=== PATIENT | male | born 1955 | race Caucasian/White ===

== ENCOUNTER → 2019-06-12 | Outpatient (CLI) | payer MEDICAID ==
[~2019-06-12] MED LIST: CEPH500C PO; HYDR-2890 PO; NAPR220C PO; SULF1TAB38 PO
--- NOTE | 2019-06-12 10:47 | Diagnostic Imaging Report ---
CLINICAL INDICATION: Patient with chronic low back pain with history of heavy lifting injury in the past. EXAM: MRI of the lumbar spine performed without IV contrast. Sagittal T2, sagittal T1, sagittal T2 fat-sat, and axial T2. COMPARISON: None. FINDINGS: There is straightening of the lumbar spine posture. There is no acute lumbar spine fracture. There are Modic type I degenerative signal changes involving the L1 through L4 level. There is no significant paraspinal soft tissue abnormality. There are hypertrophic spurs seen throughout the lumbar spine and facet arthropathy. There is tortuosity of the cauda equina nerve roots seen at the L1-L2 level due to severe central canal stenosis at the L2-L3 level. Otherwise, the visualized portions of the distal thoracic spinal cord, conus medullaris, and cauda equina nerve roots show no other significant abnormality. Conus medullaris tip is seen at the L1-L2 intervertebral level. T10-T11: There is a small posterior disc bulge at the T10-T11 level. There is facet arthropathy at the T10-T11 level with moderate right neural foramen narrowing and mild left neural foramen narrowing. There is mild central canal narrowing. T11-T12: There is a small posterior disc bulge and mild facet arthropathy. There is no significant central spinal canal or neural foramen narrowing. T12-L1: There is no significant central spinal canal or neural foramen narrowing. L1-L2: There is diffuse disc bulge with moderate loss of intervertebral disc height. There is a moderate-sized anterior disc extrusion/herniation. There is [id number] bilateral facet arthropathy and ligamentum flavum buckling. There is moderate central canal stenosis. There is severe bilateral neural foramen narrowing. L2-L3: There is a diffuse disc bulge with severe loss of intervertebral disc height. There are disc spurs extending posteriorly and into the foraminal regions bilaterally. There is moderate bilateral facet arthropathy/hypertrophy and ligamentum flavum buckling. There is severe central canal narrowing and severe neural foramen narrowing. There are hypertrophic anterior disc spurs. L3-L4: There is diffuse disc bulge and moderate loss of intervertebral disc height and Schmorl's nodes. There is moderate bilateral facet arthropathy. There is mild central canal narrowing and severe bilateral neural foramen narrowing. L4-L5: There is diffuse disc bulge with severe loss of intervertebral disc height with endplate irregularity. There are hypertrophic disc spurs seen posteriorly and into the foraminal regions bilaterally. There is severe bilateral facet arthropathy and ligamentum flavum buckling. There is [id number]-[id number]-irxtbl central canal stenosis and moderate bilateral neural foramen narrowing. L5-S1: There is a diffuse disc bulge with severe loss of intervertebral disc height and moderate bilateral facet arthropathy. There is no significant central canal narrowing. There is severe bilateral neural foramen narrowing. IMPRESSION: 1: There is severe multilevel lumbar spine degenerative disease with multilevel diffuse disc bulges, disc spurs, and facet arthropathy. This is described in detail above. 2: There is severe central canal stenosis at the L2-L3 level. 3: There is multilevel severe bilateral neural foramen narrowing seen from the L1 through S1 levels. Dictated by: Dictated on workstation # [id number]
== END ==
LOC: RAD 09:31
PROVIDERS: ATTEND Family Medicine
DX: M51.37 Other intervertebral disc degeneration, lumbosacral region (principal); M51.27 Other intervertebral disc displacement, lumbosacral region; M47.816 Spondylosis without myelopathy or radiculopathy, lumbar region; M48.07 Spinal stenosis, lumbosacral region; M46.97 Unspecified inflammatory spondylopathy, lumbosacral region; M46.94 Unspecified inflammatory spondylopathy, thoracic region; M51.24 Other intervertebral disc displacement, thoracic region; M48.04 Spinal stenosis, thoracic region
CPT/HCPCS: 72148

== ENCOUNTER → 2021-06-13 | Outpatient (CLI) | payer MEDICAID ==
--- NOTE | 2021-06-13 17:48 | Diagnostic Imaging Report ---
CT Lung Screening INDICATION:Current smoker with [id number] smoking history for baseline low-dose CT screening. TECHNIQUE: Noncontrast, low-dose CT imaging performed according to the lung cancer screening protocol. Auto Exposure Controls were utilize during the CT exam to meet ALARA standards for radiation dose reduction. FINDINGS: Baseline. Some mild linear zones of subpleural scarring or partial atelectasis greatest in the right lung base. No suspicious lung mass or worrisome pulmonary nodule. There are few densely calcified benign pulmonary granulomata. No spiculated lesion. No findings of pneumonia. There is some benign calcified granulomatous disease in the lymph nodes. There is no pleural or pericardial effusion. No acute chest wall pathology. Upper abdomen showing a fatty liver. IMPRESSION: Lung RADS category 2 benign findings as described. No evidence for lung cancer. Continued annual low-dose CT screening follow-up recommended. LUNG-RADS CATEGORY: Category 2 MODIFIER: None OTHER SIGNIFICANT FINDINGS: Some chronic areas of subpleural scarring and partial atelectasis with benign granulomatous disease Dictated by: Dictated on workstation # [id number]
== END ==
LOC: RAD 14:45
PROVIDERS: ATTEND Family Medicine
DX: Z12.2 Encounter for screening for malignant neoplasm of respiratory organs (principal); J43.1 Panlobular emphysema; F17.210 Nicotine dependence, cigarettes, uncomplicated
CPT/HCPCS: 71271

== ENCOUNTER 2023-05-31 13:51 | Inpatient (IN) | payer MEDICARE, MEDICAID ==
[2023-05-31] VITALS (7 sets, daily range): BP systolic 97–142; BP diastolic 51–75
[~2023-05-31] VITALS: Ht 175 cm; Wt 49.9 kg
--- NOTE | 2023-05-31 14:07 | ED General ---
General Chief Complaint: General Problems/Pain Stated Complaint: GEN WEAKNESS Source of Information: Patient Exam Limitations: No Limitations History of Present Illness Date Seen by Provider: May 31, 2023 Time Seen by Provider: 13:55 Initial Comments This 67-year-old man is brought to the emergency room by [facility] with primary complaint of generalized weakness and urinary incontinence. He lives alone and has been unable to walk due to generalized weakness for several days. A friend checked on him and noted him to be incontinent and weak prompting the ambulance call. EMS noted that he was near hypotensive with systolic blood pressures of 99 and 106. IV fluids were initiated by EMS. He is afebrile. He is alert and conversational but does appear weak. He reports frequent falls over the last few months but does not describe any specific injury. He has generalized pain. He is quite thin and has numerous bedbugs. His clothing is soiled. His weakness appears to be global on exam. He reports drinking about 2 beers a daily. He has had chronic back pain and progressive weakness for many months but has not wanted to go to a doctor. Allergies and Home Medications Allergies Coded Allergies: No Known Drug Allergies (Unverified , 09/24/12) Patient Home Medication List Home Medication List Reviewed: Yes Hydrocodone Bit/Acetaminophen (Hydrocodon-Acetaminophn 10-325) 1 Each Tablet, 1 EACH PO Q6H Prescribed by: GM DELCID on 11/03/12 1129 Review of Systems Review of Systems Constitutional: see HPI EENTM: no symptoms reported Respiratory: no symptoms reported Cardiovascular: no symptoms reported Gastrointestinal: no symptoms reported Genitourinary: no symptoms reported Musculoskeletal: see HPI Skin: no symptoms reported Psychiatric/Neurological: See HPI Hematologic/Lymphatic: No Symptoms Reported Immunological/Allergic: no symptoms reported Past Keogrnv-Kcnmbt-Vhmrug Hx Patient Social History Tobacco Use?: Yes Tobacco type used: Cigarettes Use of E-Cig and/or Vaping dev: No Substance use?: Yes Substance type: Marijuana Substance frequency: Once in a while Alcohol Use?: Yes Alcohol Frequency: Daily Immunizations Up To Date Tetanus Booster (TDap): Less than 5yrs Past Medical History Surgeries: No Respiratory: No Cardiac: Yes Hypertension Neurological: No Reproductive Disorders: No Sexually Transmitted Disease: No HIV/AIDS: No Genitourinary: No Gastrointestinal: No Musculoskeletal: Yes Arthritis, Chronic Back Pain, Fractures HEENT: No Cancer: No Psychosocial: Yes (Daily alcohol use) Adverse Reaction/Blood Tranf: No Physical Exam Vital Signs Vital Signs - First Documented 05/31/23 05/31/23 14:35 15:49 Pulse 74 Resp 16 B/P (MAP) 96/66 (76) Pulse Ox 100 O2 Delivery Room Air Capillary Refill : Height, Weight, BMI Height: '" Weight: lbs. oz. kg; BMI Method:Stated General Appearance: No Apparent Distress, WD/WN, Thin, Other (Weak, soiled, disheveled, bedbug infestation) HEENT: PERRL/EOMI, Normal ENT Inspection, Other (Oropharynx somewhat dry) Neck: Normal Inspection; No JVD Respiratory: Lungs Clear, Normal Breath Sounds, No Accessory Muscle Use Cardiovascular: Regular Rate, Rhythm, No Edema, No Murmur Gastrointestinal: Non Tender, Soft Extremity: Normal Inspection, No Pedal Edema Neurologic/Psychiatric: Alert, Oriented x3, Normal Mood/Affect, Other (Generalized weakness, moves all 4 extremities equally) Skin: Normal Color, Warm/Dry Progress/Results/Core Measures Suspected Sepsis SIRS Temperature: Pulse: Respiratory Rate: Laboratory Tests 05/31/23 14:27: White Blood Count 5.1 Blood Pressure / Mean: Laboratory Tests 05/31/23 14:05: Creatinine 0.55L, INR Comment 1.2, Total Bilirubin 0.2 05/31/23 14:27: Platelet Count 402H Results/Orders Lab Results Laboratory Tests Test 05/31/23 14:05 05/31/23 14:27 05/31/23 15:15 Range/Units Prothrombin Time 15.3 H 12.2-14.7 SEC INR Comment 1.2 0.8-1.4 Activated Partial Thromboplast Time 22 L 24-35 SEC Sodium Level 131 L 135-145 MMOL/L Potassium Level 4.0 3.6-5.0 MMOL/L Chloride Level 99 98-107 MMOL/L Carbon Dioxide Level 18 L 21-32 MMOL/L Anion Gap 14 5-14 MMOL/L Blood Urea Nitrogen 8 7-18 MG/DL Creatinine 0.55 L 0.60-1.30 MG/DL Estimat Glomerular Filtration Rate 110 BUN/Creatinine Ratio 15 Glucose Level 99 70-105 MG/DL Calcium Level 8.0 L 8.5-10.1 MG/DL Corrected Calcium 8.7 8.5-10.1 MG/DL Magnesium Level 2.2 1.6-2.4 MG/DL Total Bilirubin 0.2 0.1-1.0 MG/DL Aspartate Amino Transf (AST/SGOT) 17 5-34 U/L Alanine Aminotransferase (ALT/SGPT) 9 0-55 U/L Alkaline Phosphatase 89 40-136 U/L Total Protein 5.9 L 6.4-8.2 GM/DL Albumin 3.1 L 3.2-4.5 GM/DL Serum Alcohol 26 H <10 MG/DL White Blood Count 5.1 4.3-11.0 10^3/uL Red Blood Count 1.51 L 4.30-5.52 10^6/uL Hemoglobin 2.7 *L 3.0 *L 13.3-17.7 g/dL Hematocrit 10 *L 11 *L 40-54 % Mean Corpuscular Volume 66 L 80-99 fL Mean Corpuscular Hemoglobin 18 L 25-34 pg Mean Corpuscular Hemoglobin Concent 27 L 32-36 g/dL Red Cell Distribution Width 17.4 H 10.0-14.5 % Platelet Count 402 H 130-400 10^3/uL Mean Platelet Volume 8.9 L 9.0-12.2 fL Neutrophils (%) (Auto) 48 42-75 % Lymphocytes (%) (Auto) 34 12-44 % Monocytes (%) (Auto) 13 H 0-12 % Eosinophils (%) (Auto) 4 0-10 % Basophils (%) (Auto) 1 0-10 % Neutrophils # (Auto) 2.5 1.8-7.8 X 10^3 Lymphocytes # (Auto) 1.7 1.0-4.0 X 10^3 Monocytes # (Auto) 0.7 0.0-1.0 X 10^3 Eosinophils # (Auto) 0.2 0.0-0.3 10^3/uL Basophils # (Auto) 0.1 0.0-0.1 10^3/uL Neutrophils % (Manual) 48 % Lymphocytes % (Manual) 40 % Monocytes % (Manual) 10 % Eosinophils % (Manual) 2 % Platelet Estimate ADEQUATE Hypochromasia 4 Basophilic Stippling MARKED Anisocytosis MODERATE Microcytosis SLIGHT Macrocytosis SLIGHT Target Cells SLIGHT Schistocytes MODERATE Smear Scan N My Orders Orders - ALDO REYNA MD Alcohol (05/31/23 14:02) Cbc With Automated Diff (05/31/23 14:02) Comprehensive Metabolic Panel (05/31/23 14:02) Drug Screen Stat (Urine) (05/31/23 14:02) Magnesium (05/31/23 14:02) Thyroid Analyzer (05/31/23 14:02) Ua Culture If Indicated (05/31/23 14:02) Ed Iv/Invasive Line Start (05/31/23 14:02) Protime With Inr (05/31/23 15:01) Partial Thromboplastin Time (05/31/23 15:01) Manual Differential (05/31/23 14:27) Hemoglobin And Hematocrit (05/31/23 15:15) Vital Signs/I&O 05/31/23 05/31/23 14:35 15:49 Pulse 74 84 Resp 16 16 B/P (MAP) 96/66 (76) 97/54 Pulse Ox 100 100 O2 Delivery Room Air Capillary Refill : Progress Note : Time: 16:00 Progress Note Patient was interviewed and examined upon arrival. Report was received from EMS. Labs were obtained and reviewed in their entirety. Patient had not yet produced a urine specimen. CBC was markedly abnormal with a hemoglobin of 2.7 and hematocrit of 10. Repeat draw for confirmation reported hemoglobin of 3.0 and hematocrit of 11. WBC count was normal. Platelets were mildly elevated at 402. MCV was low and RDW was high. I inquired of possible blood loss with the patient. He reports no hematemesis, hematochezia or melena. He is not aware of any blood loss. He does not take any blood thinning medications. CMP was relatively unremarkable. There is mild hyponatremia with sodium of 131. CMP was otherwise unremarkable. Thyroid analyzer was pending. Alcohol level was 26. INR was normal at 1.2. Case was reviewed with Dr. Roger, admitting physician for [facility]. She excepted admission to the cardiac stepdown unit. I discussed CODE STATUS with the patient, and he elects full code. He is agreeable to transfer for admission and transfusions. Departure Communication (Admissions) Time/Spoke to Admitting Phy: 15:45 Dr. Roger Impression Primary Impression: Severe anemia Additional Impressions: Generalized weakness Frequent falls Infestation by bed bug Disposition: 30 STILL A PATIENT Condition: Stable Admissions Decision to Admit Reason: Admit from ER (General) Decision to Admit/Date: May 31, 2023 Time/Decision to Admit Time: 15:45 Departure-Patient Inst. Decision time for Depature: 16:15 Referrals: MAHIN TELLEZ MD (PCP/Family) Primary Care Physician Copy Copies To 1: MAHIN TELLEZ MD, JOSHUA T MD May 31, 2023 14:07
[2023-05-31 14:33] LABS: ALBUMIN 3.1 GM/DL (3.2-4.5); BILIRUBIN,TOTAL 0.2 MG/DL (0.1-1.0); CREATININE SERUM 0.55 MG/DL (0.60-1.30); MAGNESIUM 2.2 MG/DL (1.6-2.4); TOTAL PROTEIN 5.9 GM/DL (6.4-8.2)
[2023-05-31 15:05] LABS: WHITE BLOOD COUNT 5.1 10^3/uL (4.3-11.0)
[2023-05-31 15:06] LABS: HEMATOCRIT 10 % (40-54); HEMOGLOBIN 2.7 g/dL (13.3-17.7); MEAN CORPUSCULAR HEMOGLOBIN 18 pg (25-34); MEAN CORPUSCULAR HGB CONC 27 g/dL (32-36); MEAN CORPUSCULAR VOLUME 66 fL (80-99)
[2023-05-31 15:07] LABS: LYMPHOCYTES % (AUTO) 34 % (12-44); MEAN PLATELET VOLUME 8.9 fL (9.0-12.2); NEUTROPHILS % (AUTO) 48 % (42-75); PLATELET COUNT 402 10^3/uL (130-400)
[2023-05-31 15:08] LABS: BASOPHILS # (AUTO) 0.1 10^3/uL (0.0-0.1); BASOPHILS % (AUTO) 1 % (0-10); EOSINOPHILS # (AUTO) 0.2 10^3/uL (0.0-0.3); EOSINOPHILS % (AUTO) 4 % (0-10); LYMPHOCYTES # (AUTO) 1.7 X 10^3 (1.0-4.0); MONOCYTES # (AUTO) 0.7 X 10^3 (0.0-1.0); MONOCYTES % (AUTO) 13 % (0-12); NEUTROPHILS # (AUTO) 2.5 X 10^3 (1.8-7.8)
[2023-05-31 15:09] LABS: EOSINOPHILS % (MANUAL) 2 %; LYMPHOCYTES % (MANUAL) 40 %; MONOCYTES % (MANUAL) 10 %; NEUTROPHILS % (MANUAL) 48 %; SMEAR SCAN COMMENT N
[2023-05-31 15:10] LABS: ANISOCYTOSIS MODERATE; HYPOCHROMASIA 4; MICROCYTOSIS SLIGHT; PLATELET ESTIMATE ADEQUATE; SCHISTOCYTES MODERATE; TARGET CELLS SLIGHT
[2023-05-31 15:21] LABS: INR 1.2 (0.8-1.4); PROTHROMBIN TIME PATIENT 15.3 SEC (12.2-14.7)
[2023-05-31] MEDS ORDERED: NS IV 500 ML 500 ML IV SCH ×2 (17:45)
[2023-05-31] MEDS ORDERED: NS IV 1000 ML 1,000 ML ONE (17:55)
[2023-05-31 18:02] LABS: BILIRUBIN,URINE NEGATIVE (NEGATIVE); CLARITY,URINE CLEAR; COLOR,URINE YELLOW; GLUCOSE, URINE (UA) NEGATIVE (NEGATIVE); KETONES,URINE TRACE (NEGATIVE); NITRITE,URINE POSITIVE (NEGATIVE); PH,URINE 5.5 (5-9); PROTEIN,URINE NEGATIVE (NEGATIVE)
[2023-05-31 18:03] LABS: BACTERIA,URINE LARGE /HPF; HYALINE CASTS, URINE 0-2 /LPF; LEUKOCYTE ESTERASE ,URINE TRACE (NEGATIVE); SQUAMOUS EPITHELIAL CELL,UR 0-2 /HPF
[2023-05-31 18:07] LABS: AMPHETAMINE SCREEN, URINE NEGATIVE (NEGATIVE); BARBITURATE SCREEN URINE NEGATIVE (NEGATIVE); CANNABINOID SCREEN, URINE POSITIVE (NEGATIVE); COCAINE SCREEN URINE NEGATIVE (NEGATIVE); METHADONE STAT NEGATIVE (NEGATIVE); OPIATE SCREEN URINE NEGATIVE (NEGATIVE); OXYCODONE STAT NEGATIVE (NEGATIVE); PROPOXYPHENE STAT NEGATIVE (NEGATIVE); TRICYCLIC ANTIDEPRESSANTS SCRE NEGATIVE (NEGATIVE)
[2023-05-31 18:34] LABS: ABSOLUTE RETIC # 34 10e9/uL (24-90); BASOPHILS % (AUTO) 0 % (0-10); EOSINOPHILS # (AUTO) 0.1 10^3/uL (0.0-0.3); EOSINOPHILS % (AUTO) 1 % (0-10); LYMPHOCYTES # (AUTO) 1.3 10^3/uL (1.0-4.0); LYMPHOCYTES % (AUTO) 17 % (12-44); MEAN CORPUSCULAR HEMOGLOBIN 18 pg (25-34); MEAN CORPUSCULAR HGB CONC 28 g/dL (32-36); MEAN CORPUSCULAR VOLUME 64 fL (80-99); MEAN PLATELET VOLUME 9.2 fL (9.0-12.2); MONOCYTES # (AUTO) 0.8 10^3/uL (0.0-1.0); MONOCYTES % (AUTO) 10 % (0-12); NEUTROPHILS # (AUTO) 5.6 10^3/uL (1.8-7.8); NEUTROPHILS % (AUTO) 71 % (42-75); PLATELET COUNT 500 10^3/uL (130-400); RETICULOCYTE % 1.85 % (0.50-2.40); WHITE BLOOD COUNT 7.9 10^3/uL (4.3-11.0)
[2023-05-31 18:36] LABS: HEMATOCRIT 12 % (40-54); HEMOGLOBIN 3.2 g/dL (13.3-17.7)
[2023-05-31 19:26] LABS: ANISOCYTOSIS SLIGHT; HYPOCHROMASIA MARKED; LYMPHOCYTES % (MANUAL) 20 %; MICROCYTOSIS MARKED; MONOCYTES % (MANUAL) 10 %; NEUTROPHILS % (MANUAL) 70 %
[2023-05-31] MEDS ORDERED: CEFTRIAXONE IV SCH (20:45)
[2023-05-31] MEDS ORDERED: [UNRECOGNIZED DRUG - OTHER] IV SCH (20:45)
[2023-05-31] MEDS ORDERED: cefTRIAXone 1,000 MG VIAL IV/IM IV SCH (21:15)
[2023-05-31 21:49] LABS: TSH (THYROID ANALYZER) 4.04 UIU/ML (0.35-4.94)
[2023-06-01] VITALS (10 sets, daily range): BP systolic 113–137; BP diastolic 70–90
[2023-06-01] MEDS ORDERED: cefTRIAXone 1,000 MG VIAL IV/IM IV SCH (03:15)
[2023-06-01] MEDS: cefTRIAXone 1 GM/NS 50 ML IVPB IV SCH ×2 (04:14)
[2023-06-01 04:47] LABS: MEAN CORPUSCULAR HEMOGLOBIN 23 pg (25-34); MEAN CORPUSCULAR HGB CONC 32 g/dL (32-36); MEAN CORPUSCULAR VOLUME 73 fL (80-99); PLATELET COUNT 337 10^3/uL (130-400); WHITE BLOOD COUNT 16.8 10^3/uL (4.3-11.0)
[2023-06-01 04:51] LABS: HEMATOCRIT 18 % (40-54); HEMOGLOBIN 5.8 g/dL (13.3-17.7)
[2023-06-01 05:20] LABS: ALBUMIN 3.1 GM/DL (3.2-4.5); BILIRUBIN,TOTAL 1.8 MG/DL (0.1-1.0); CALCIUM 7.8 MG/DL (8.5-10.1); CREATININE SERUM 0.6 MG/DL (0.60-1.30); POTASSIUM 3.9 MMOL/L (3.6-5.0); TOTAL PROTEIN 5.4 GM/DL (6.4-8.2)
[2023-06-01 10:52] LABS: HEMOGLOBIN 7.4 g/dL (13.3-17.7)
--- NOTE | 2023-06-01 14:26 | Diagnostic Imaging Report ---
EXAMINATION: CT chest, abdomen and pelvis without intravenous contrast. TECHNIQUE: Multiple contiguous axial images were obtained through the chest, abdomen and pelvis without intravenous contrast. All CT scans use one or more of the following dose optimizing techniques: automated exposure control, MA and/or KvP adjustment based on patient size and exam type or iterative reconstruction. HISTORY: Anemia. COMPARISON: 06/13/2021. FINDINGS: Thyroid: The thyroid is normal. Mediastinum: Heart size is normal without significant pericardial effusion. Calcifications of the aorta and coronary vessels. Thoracic aorta is normal in caliber. There are calcified mediastinal and perihilar lymph nodes present. No suspicious lymphadenopathy. Lungs and airways: There is no focal consolidation, pleural effusion, or pneumothorax. Scattered areas of linear atelectasis or scarring are present. There are mild background emphysematous changes of the lungs. No suspicious pulmonary lesion. The airways are normal. Solid organs: The liver is normal. The gallbladder is normal. There is no biliary ductal dilation. Pancreas is normal. Spleen is normal. Adrenal glands are normal. The kidneys are normal without hydronephrosis. Bowel: The stomach and small bowel are normal without obstruction. The colon is unremarkable. There is decreased evaluation of the bowel secondary to significant bowel gas as well as patient respiratory motion throughout the exam. Peritoneum: There is no intraperitoneal free fluid or free air. No suspicious lymphadenopathy. Vasculature: Calcification of the aorta without aneurysm. Musculoskeletal: Degenerative changes of the spine without suspicious osseous lesion or compression fracture. There are a few chronic healed rib fractures present. Pelvis: The prostate gland is normal. The urinary bladder is decompressed which limits evaluation. IMPRESSION: 1. No acute abnormality in the abdomen or pelvis. 2. No findings suspicious for malignancy. Dictated by: Dictated on workstation # [id number]
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
[2023-06-01 17:57] LABS: HEMATOCRIT 23 % (40-54); HEMOGLOBIN 7.3 g/dL (13.3-17.7); MEAN CORPUSCULAR HEMOGLOBIN 24 pg (25-34); MEAN CORPUSCULAR HGB CONC 32 g/dL (32-36); MEAN CORPUSCULAR VOLUME 75 fL (80-99); MEAN PLATELET VOLUME 8.8 fL (9.0-12.2); PLATELET COUNT 315 10^3/uL (130-400); WHITE BLOOD COUNT 13.7 10^3/uL (4.3-11.0)
[2023-06-02] VITALS (7 sets, daily range): BP systolic 106–151; BP diastolic 63–98
[2023-06-02] MEDS: cefTRIAXone 1 GM/NS 50 ML IVPB IV SCH ×2 (04:14)
[2023-06-02 05:51] LABS: HEMATOCRIT 22 % (40-54); MEAN CORPUSCULAR HEMOGLOBIN 24 pg (25-34); MEAN CORPUSCULAR HGB CONC 32 g/dL (32-36); MEAN CORPUSCULAR VOLUME 74 fL (80-99); PLATELET COUNT 313 10^3/uL (130-400); WHITE BLOOD COUNT 9.2 10^3/uL (4.3-11.0)
[2023-06-02 06:13] LABS: BILIRUBIN,TOTAL 0.6 MG/DL (0.1-1.0); CALCIUM 7.8 MG/DL (8.5-10.1); CREATININE SERUM 0.58 MG/DL (0.60-1.30); POTASSIUM 4.1 MMOL/L (3.6-5.0); TOTAL PROTEIN 5.5 GM/DL (6.4-8.2)
--- NOTE | 2023-06-02 07:46 | Physical Therapy Evaluation ---
PT Evaluation-General Medical Diagnosis Admission Date May 31, 2023 at 17:30 Medical Diagnosis: anemia Onset Date: May 31, 2023 Therapy Diagnosis Therapy Diagnosis: debility Precautions Precautions/Isolations: Standard Precautions Weight Bear Status Right Lower Extremity: Right Full Weight Bearing Left Lower Extremity: Left Full Weight Bearing Referral Physician: Kana Reason for Referral: Evaluation/Treatment Social History Home: Single Level Current Living Status: Alone Prior Prior Level of Function SCALE: Activities may be completed with or without assistive devices. 3-Faoamhiagb-pohttuw completes the activity by him/herself with no assistance from a helper. 5-Set-up or Clean-up Assistance-helper sets up or cleans up; patient completes activity. [place] assists only prior to or following the activity. 4-Supervision or Touching Assistance-helper provides verbal cues and/or touching/steadying and/or contact guard assistance as patient completes activity. Assistance may be provided throughout the activity or intermittently. 3-Partial/Moderate Assistance-helper does LESS THAN HALF the effort. [place] lifts, holds or supports trunk or limbs, but provides less than half the effort. 2-Substantial/Maximal Assistance-helper does MORE THAN HALF the effort. [place] lifts or holds trunk or limbs and provides more than half the effort. 7-Jsjgxarqi-zdtrdi does ALL the effort. Patient does none of the effort to complete the activity. Or, the assistance of 2 or more helpers is required for the patient to complete the activity. If activity was not attempted, code reason: 7-Patient Refused. 9-Not Applicable-not attempted and the patient did not perform the activity before the current illness, exacerbation or injury. 10-Not Attempted due to Environmental Limitations-(lack of equipment, weather restraints, etc.). 88-Not Attempted due to Medical Conditions or Safety Concerns. Bed Mobility: 6 Transfers (B,C,W/C): 6 Gait: 6 Stairs: 6 Indoor Mobility (Ambulation): Independent Stairs: Independent PT Evaluation-Current Subjective The patient states that he has been getting weaker for the past year or so. He reports that recently his legs have stopped working and that he is falling a lot and having difficulty walking. Pain Comment: reports he has pain but would not rate Objective Patient Orientation: Person, Place, Time, Situation Attachments: IV ROM/Strength ROM Lower Extremities WFL Strength Lower Extremities 3+/5 Transfers Roll Left to Right (QC): 5 Sit to Lying (QC): 5 Lying to Sitting/Side of Bed(Q: 5 Sit to Stand (QC): 5 Gait Does the Patient Walk?: Yes Mode of Locomotion: Walk Anticipated Mode of Locomotion: Walk Walk 10 feet (QC): 88 Walk 50 ft with 2 Turns(QC): 88 Walk 150 ft (QC): 88 Walking 10ft/uneven surface-QC: 88 Distance: 5 Gait Assistive Device: FWW Wheelchair Training Does the Pt Use a Wheelchair?: No Balance Sitting Static: Good Sitting Dynamic: Good Standing Static: Fair Standing Dynamic: Poor Assessment/Needs 67 y.o. male with severe weakness and debility. He has functional mobility limitations that justify skilled therapy. Rehab Potential: Good PT Intercell Connector Placer Goals Alf Goals PT Intercell Connector Placer Goals Time Frame: Jun 09, 2023 Roll Left & Right (QC): 6 Sit to Lying (QC): 6 Lying-Sitting on Side/Bed(QC): 6 Sit to Stand (QC): 6 Chair/Nuy-gz-Evxsb Xfer(QC): 6 Toilet Transfer (QC): 6 Car Transfer (QC): 6 Does the Patient Walk: Yes Walk 10 feet (QC): 5 Walk 50ft with 2 Turns (QC): 5 Walk 150 ft (QC): 5 Walking 10ft on Uneven Surface: 5 1 Step (curb) (QC): 5 4 Steps (QC): 5 12 Steps (QC): 5 Picking up an Object (QC): 5 PT Plan Problem List Problem List: Activity Tolerance, Functional Strength, Safety, Balance, Gait, Transfer, Bed Mobility Treatment/Plan Treatment Plan: Continue Plan of Care Treatment Plan: Bed Mobility, Functional Activity Elio, Functional Strength, Gait, Safety, Therapeutic Exercise, Transfers Treatment Duration: Jun 09, 2023 Frequency: 6 times per week Estimated Hrs Per Day: .5 hour per day Patient and/or Family Agrees t: Yes Time Time In: 725 Time Out: 740 DATE: Jun 02, 2023 Total Billed Treatment Time: 15 Total Billed Treatment 1, EV low complexity x 15' MIGUELANGEL HARRISON PT Jun 02, 2023 07:46
--- NOTE | 2023-06-02 07:57 | Progress Note ---
EDITH YIN MD, RESIDENT 06/02/23 0757: Subjective HPI/CC On Admission Date Seen by Provider: Jun 02, 2023 Time Seen by Provider: 10:45 Anemia Subjective/Events-last exam Patient feels well this morning. Has not noted any overt signs of bleeding. Did not sleep well last night as he had difficulty getting comfortable so feels a bit tired today. No other concerns today. Review of Systems General: No Fatigue HEENT: No Head Aches, No Visual Changes Pulmonary: Cough Cardiovascular: No: Chest Pain, Edema Gastrointestinal: No: Nausea, Vomiting, Abdominal Pain, Diarrhea, Constipation Genitourinary: No Dysuria Musculoskeletal: leg pain (bilaterally, chronic) Neurological: Weakness Objective Exam Vital Signs Vital Signs Date Time Temp Pulse Resp B/P (MAP) Pulse Ox O2 Delivery O2 Flow Rate FiO2 06/02/23 08:00 36.1 80 18 149/63 (91) 94 Room Air 06/02/23 06:18 0.00 Capillary Refill : General Appearance: No Apparent Distress HEENT: PERRL/EOMI Neck: Full Range of Motion Respiratory: Chest Non Tender, Lungs Clear, Normal Breath Sounds, No Accessory Muscle Use, No Respiratory Distress Cardiovascular: Regular Rate, Rhythm, No Edema, No Murmur, Normal Peripheral Pulses Gastrointestinal: Normal Bowel Sounds, Non Tender, Soft Extremity: Normal Range of Motion Neurologic/Psychiatric: Alert, Oriented x3 Skin: Warm/Dry Results/Procedures Lab Laboratory Tests 06/01/23 17:52 06/02/23 05:37 Patient resulted labs reviewed. Imaging: Reviewed Imaging Films Assessment/Plan Assessment and Plan Assess & Plan/Chief Complaint Андрей Rock is a 67 yo M presenting with anemia, also found to have a UTI. Diagnosis/Problems Diagnosis/Problems (1) Urinary tract infection Status: Acute Assessment & Plan: Noted to have UTI on UA, patient is otherwise asymptomatic. Leukocytosis has resolved. Urine culture growing E. coli. -Continue ceftriaxone -Will adjust antibiotic regimen pending susceptibilities. Qualifiers: Qualified Codes: N30.00 - Acute cystitis without hematuria (2) Severe anemia Status: Acute Assessment & Plan: No overt signs of hematochezia, melena or hematemesis noted. Thus anemia likely chronic and developing over time. Patient denies any prior EGD or colonoscopy. Anemia is consistent with iron deficiency, normal B12 and folate. Stable hemoglobin today s/p 3u PRBCs. -Continue monitoring CBC -Consider GI consult for EGD/colonoscopy while inpatient. (3) Frequent falls Status: Acute Assessment & Plan: Likely secondary to weakness from anemia. Physicial therapy consulted, recommending SNF. -Appreciate social work assistance with SNF placement. (4) Generalized weakness Status: Acute Assessment & Plan: See plan above. (5) Infestation by bed bug Status: Acute Assessment & Plan: Precautions in place. Concern for home safety given history, high school social studies teacher consulted. (6) DVT prophylaxis Status: Acute Assessment & Plan: SCDs, holding lovenox in the setting of severe anemia. THU MENDOSA MD 06/02/23 1136: Assessment/Plan Assessment and Plan Assess & Plan/Chief Complaint Supervisory Addendum I personally performed or re-performed the history, physical exam and treatment for the E/M. I discussed the case with the Medical Student, and concur with the Medical Student documentation of history, physical exam and treatment plan unless otherwise noted. EDITH YIN MD, RESIDENT Jun 02, 2023 07:57 THU MENDOSA MD Jun 02, 2023 11:36
[2023-06-02] MEDS: GABAPENTIN 300 MG CAPSULE PO PRN (21:34)
[2023-06-03] VITALS (7 sets, daily range): BP systolic 126–156; BP diastolic 68–101
[2023-06-03] MEDS: cefTRIAXone 1 GM/NS 50 ML IVPB IV SCH ×2 (03:57)
--- NOTE | 2023-06-03 06:27 | Progress Note ---
Subjective HPI/CC On Admission Date Seen by Provider: Jun 03, 2023 Time Seen by Provider: 07:10 Anemia Subjective/Events-last exam Patient continues to do well today. Is noting that he still did not sleep well last night. Has not had a bowel movement for couple days but has not noted any overt signs of bleeding. He does have a cough that is occasionally productive and does feel he would benefit from an inhaler. States that he used to use an inhaler at home but ran out a while ago. Patient also does feel a little weak and would like to work towards being able to move around more. He otherwise has no concerns today. Review of Systems General: No Fatigue HEENT: No Head Aches Pulmonary: No Dyspnea; Cough Cardiovascular: No: Chest Pain, Palpitations Gastrointestinal: Constipation; No: Nausea, Vomiting, Abdominal Pain, Diarrhea, Melena, Hematochezia Genitourinary: No Dysuria Neurological: Weakness Objective Exam Vital Signs Vital Signs Date Time Temp Pulse Resp B/P (MAP) Pulse Ox O2 Delivery O2 Flow Rate FiO2 06/03/23 08:07 35.5 06/03/23 07:00 72 06/03/23 06:06 97 Room Air 0.00 06/03/23 04:00 11 151/83 (105) Capillary Refill : General Appearance: No Apparent Distress HEENT: PERRL/EOMI Neck: Full Range of Motion Respiratory: Chest Non Tender, Lungs Clear, No Accessory Muscle Use, No Respiratory Distress, Wheezing (End expiratory), Other Cardiovascular: Regular Rate, Rhythm, No Edema, No Murmur Gastrointestinal: Normal Bowel Sounds, Non Tender, Soft Neurologic/Psychiatric: Alert, Oriented x3 Results/Procedures Lab Laboratory Tests 06/03/23 06:56 Patient resulted labs reviewed. Imaging: Reviewed Imaging Films Assessment/Plan Assessment and Plan Assess & Plan/Chief Complaint Андрей Rock is a 67 yo M presenting with anemia, also found to have a UTI. Diagnosis/Problems Diagnosis/Problems (1) Urinary tract infection Status: Acute Assessment & Plan: Noted to have UTI on UA, patient is otherwise asymptomatic. Leukocytosis has resolved. Urine culture growing E. coli. -Continue ceftriaxone -Will adjust antibiotic regimen pending susceptibilities. Qualifiers: Qualified Codes: N30.00 - Acute cystitis without hematuria (2) Severe anemia Status: Acute Assessment & Plan: No overt signs of hematochezia, melena or hematemesis noted. Thus anemia likely chronic and developing over time. Patient denies any prior EGD or colonoscopy. Anemia is consistent with iron deficiency, normal B12 and folate. Stable hemoglobin today s/p 3u PRBCs. 06/03 stable hemoglobin today at 7.3. -Continue monitoring CBC -Plan to consult general surgery tomorrow for EGD/colonoscopy while inpatient. (3) Frequent falls Status: Acute Assessment & Plan: Likely secondary to weakness from anemia. Physicial therapy consulted, recommending SNF. -Appreciate social work assistance with SNF placement. (4) Generalized weakness Status: Acute Assessment & Plan: See plan above. (5) Wheezing Status: Chronic Assessment & Plan: Patient noted to have wheezing and occasionally productive cough. Likely has COPD that is undiagnosed as he notes that he used to have an inhaler at home and does have a smoking history. Physical exam is remarkable for end expiratory wheezing and occasional rhonchi likely from lung congestion. We will start albuterol and DuoNebs today Patient would benefit from smoking cessation, has nicotine patches on board to encourage this. (6) Infestation by bed bug Status: Acute Assessment & Plan: Precautions in place. Concern for home safety given history, social media content specialist consulted. (7) DVT prophylaxis Status: Acute Assessment & Plan: SCDs, holding lovenox in the setting of severe anemia. EDITH YIN MD, RESIDENT Jun 03, 2023 06:26
[2023-06-03 07:26] LABS: HEMATOCRIT 23 % (40-54); HEMOGLOBIN 7.3 g/dL (13.3-17.7); MEAN CORPUSCULAR HEMOGLOBIN 24 pg (25-34); MEAN CORPUSCULAR HGB CONC 32 g/dL (32-36); MEAN CORPUSCULAR VOLUME 75 fL (80-99); MEAN PLATELET VOLUME 9.1 fL (9.0-12.2); PLATELET COUNT 329 10^3/uL (130-400); WHITE BLOOD COUNT 6.9 10^3/uL (4.3-11.0)
[2023-06-03 07:59] LABS: ALBUMIN 2.8 GM/DL (3.2-4.5); POTASSIUM 3.7 MMOL/L (3.6-5.0)
[2023-06-03 08:00] LABS: CALCIUM 7.9 MG/DL (8.5-10.1)
[2023-06-03 08:02] LABS: TOTAL PROTEIN 5.3 GM/DL (6.4-8.2)
[2023-06-03 08:03] LABS: BILIRUBIN,TOTAL 0.4 MG/DL (0.1-1.0)
[2023-06-03 08:05] LABS: CREATININE SERUM 0.56 MG/DL (0.60-1.30)
[2023-06-03] MEDS: NICOTINE 14 MG PATCH TD SCH (09:23)
[2023-06-03] MEDS: GABAPENTIN 300 MG CAPSULE PO PRN ×2 (09:23→18:03)
[2023-06-03] MEDS ORDERED: BISACODYL 5 MG TABLET PO SCH ×2 (13:45→15:00)
[2023-06-03] MEDS ORDERED: RT-ALBUTEROL HFA 8.5 GM INHALER IH SCH (14:00)
[2023-06-03] MEDS: RT-Ipratropium/Albuterol NEB 3 ML VIAL INH SCH ×3 (15:29→22:31)
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
[2023-06-03] MEDS ORDERED: [UNRECOGNIZED DRUG - OTHER] PO SCH (18:00)
[2023-06-04] VITALS (10 sets, daily range): BP systolic 84–161; BP diastolic 51–93
[2023-06-04] MEDS: cefTRIAXone 1 GM/NS 50 ML IVPB IV SCH ×2 (03:11)
[2023-06-04] MEDS: RT-Ipratropium/Albuterol NEB 3 ML VIAL INH SCH ×6 (03:15→22:21)
[2023-06-04 06:17] LABS: HEMATOCRIT 24 % (40-54); HEMOGLOBIN 7.5 g/dL (13.3-17.7); MEAN CORPUSCULAR HEMOGLOBIN 24 pg (25-34); MEAN CORPUSCULAR HGB CONC 31 g/dL (32-36); MEAN CORPUSCULAR VOLUME 76 fL (80-99); MEAN PLATELET VOLUME 8.8 fL (9.0-12.2); PLATELET COUNT 325 10^3/uL (130-400); WHITE BLOOD COUNT 7.1 10^3/uL (4.3-11.0)
[2023-06-04 06:43] LABS: ALBUMIN 2.9 GM/DL (3.2-4.5); BILIRUBIN,TOTAL 0.3 MG/DL (0.1-1.0); CREATININE SERUM 0.64 MG/DL (0.60-1.30); POTASSIUM 3.8 MMOL/L (3.6-5.0); TOTAL PROTEIN 5.4 GM/DL (6.4-8.2)
--- NOTE | 2023-06-04 07:28 | Progress Note - Surgery ---
THU AG 06/04/23 0728: Subjective Date Seen by a Provider: Jun 04, 2023 Time Seen by a Provider: 07:23 Subjective/Events-last exam Pt states he feels fine other than the discomfort of the colonoscopy prep he went through yesterday, causing him to not sleep well. He was adherent with the prep. Pt states he is not abnormally fatigued, just tired from not sleeping well. Pt states his lungs and cough are doing better since yesterday from doing nebulizer treatments. Review of Systems General: No Chills, No Night Sweats HEENT: No Head Aches, No Visual Changes Pulmonary: No Dyspnea; Cough Cardiovascular: No: Chest Pain, Palpitations Gastrointestinal: Diarrhea (colonoscopy prep); No: Nausea, Vomiting Genitourinary: No Dysuria, No Hematuria Neurological: No: Weakness, Numbness Objective Exam Vital Signs Date Time Temp Pulse Resp B/P (MAP) Pulse Ox O2 Delivery O2 Flow Rate FiO2 06/04/23 03:15 36.3 76 20 128/69 (88) 100 Room Air 06/03/23 23:03 36.6 73 20 141/82 (101) 100 Room Air 06/03/23 22:32 99 Room Air 06/03/23 20:00 Room Air 06/03/23 19:18 36.8 76 18 128/73 (91) 100 Room Air 06/03/23 18:52 99 Room Air 06/03/23 16:03 36.5 77 18 126/68 (87) 98 Nasal Cannula 2.00 06/03/23 15:29 94 Nasal Cannula 2.00 06/03/23 12:44 Room Air 06/03/23 12:21 36.8 73 18 147/71 (96) 99 Room Air 06/03/23 12:10 74 143/101 (115) 98 Room Air 06/03/23 12:08 36.4 06/03/23 08:07 35.5 06/03/23 08:00 99 Room Air I & O 06/04/23 06:59 Intake Total 1760 ml Output Total 1425 ml Balance 335 ml Capillary Refill : General Appearance: No Apparent Distress Neck: Non Tender; No JVD Respiratory: No Accessory Muscle Use, No Respiratory Distress, Crackles, Wheezing (End expiratory) Cardiovascular: Regular Rate, Rhythm (HR 76), No Murmur Peripheral Pulses: 2+ Carotid (R), 2+ Carotid (L), 2+ Dorsalis Pedis (R), 2+ Left Dors-Pedis (L), 2+ Radial Pulses (R), 2+ Radial Pulses (L) Gastrointestinal: non tender, soft, no organomegaly Neurologic/Psychiatric: Alert, Oriented x3 Skin: Normal Color, Warm/Dry Results Lab Laboratory Tests 06/04/23 06:08: White Blood Count 7.1, Red Blood Count 3.15L, Hemoglobin 7.5L, Hematocrit 24L, Mean Corpuscular Volume 76L, Mean Corpuscular Hemoglobin 24L, Mean Corpuscular Hemoglobin Concent 31L, Red Cell Distribution Width 26.0H, Platelet Count 325, Mean Platelet Volume 8.8L, Sodium Level 131L, Potassium Level 3.8, Chloride Level 103, Carbon Dioxide Level 23, Anion Gap 5, Blood Urea Nitrogen 4L, Creatinine 0.64, Estimat Glomerular Filtration Rate 105, BUN/Creatinine Ratio 6, Glucose Level 89, Calcium Level 8.0L, Corrected Calcium 8.9, Total Bilirubin 0.3, Aspartate Amino Transf (AST/SGOT) 12, Alanine Aminotransferase (ALT/SGPT) 9, Alkaline Phosphatase 63, Total Protein 5.4L, Albumin 2.9L Microbiology 05/31/23 Urine Culture - Final, Complete Escherichia coli Assessment/Plan Assessment/Plan Assessment/Plan Severe Anemia - consistent values around current of: 3.15 RBC, 7.5 Hgb, 24 Hct, 26 RDW COPD HTN - 128/69 at 3:00 a.m. today and 141/82 four hours earlier Do Colonoscopy and EGD today. Continue medical management of chronic conditions. Clinical Quality Measures DVT/VTE Risk/Contraindication: Contraindications-Pharm: Other *list below* Other: anemia SEE COLLAZO DO 06/04/23 1114: Subjective Time Seen by a Provider: 11:08 Subjective/Events-last exam Pt seen and examined, no changes and no complaints. States his breathing is a little better after breathing treatments. Review of Systems General: No Chills, No Night Sweats; Fatigue Pulmonary: No Dyspnea; Cough Cardiovascular: No: Chest Pain, Palpitations Gastrointestinal: No: Nausea, Vomiting Genitourinary: No Dysuria Objective Exam General Appearance: No Apparent Distress, Thin Respiratory: No Accessory Muscle Use, No Respiratory Distress, Crackles, Wheezing (End expiratory) Cardiovascular: Regular Rate, Rhythm (HR 76), No Murmur Gastrointestinal: non tender, soft, no organomegaly Neurologic/Psychiatric: Alert, Oriented x3 Skin: Normal Color, Warm/Dry Assessment/Plan Assessment/Plan Assessment/Plan Severe Anemia - consistent values around current of: 3.15 RBC, 7.5 Hgb, 24 Hct, 26 RDW COPD HTN - 128/69 at 3:00 a.m. today and 141/82 four hours earlier Plan for Colonoscopy and EGD today. Continue medical management of chronic conditions. Supervisory-Addendum Brief Verification & Attestation Participated in pt care: history, MDM, physical Personally performed: exam, history, MDM, supervision of care Care discussed with: Medical Student Procedures: n/a Verification and Attestation of Medical Student E/M Service A medical student performed and documented this service. I then reviewed and verified all information documented by the medical student and made modificati ons to such information, when appropriate. I personally performed a physical exam, medical decision making and then discussed any differences between the notes and made revisions as necessary to create one note. See Collazo , 06/04/23 , 11:14 THU AG Jun 04, 2023 07:28 SEE COLLAZO DO Jun 04, 2023 11:14
[2023-06-04] MEDS: NICOTINE 14 MG PATCH TD SCH (08:40)
[2023-06-04] MEDS: IRON SUCROSE 200 MG/10 ML VIAL IV SCH (08:40)
--- NOTE | 2023-06-04 09:58 | Physical Therapy Progress Note ---
Therapy Progress Note PT to resume tomorrow a.m. due to procedures on this date. TAMMY YOUNG PT Jun 04, 2023 09:58
[2023-06-04] MEDS ORDERED: LACTATED RINGERS 1,000 ML 1,000 ML IV STA (10:55)
[2023-06-04] MEDS ORDERED: CYANOCOBALAMIN 1000 MCG/ML 1 ML VIAL IM NR (11:00)
[2023-06-04] MEDS ORDERED: HURRICAINE EXT TUBE (BENZOCAINE) XX PRN (11:00)
[2023-06-04] MEDS ORDERED: MIDAZOLAM INJ 2 MG/2 ML VIAL ONE (11:23)
--- NOTE | 2023-06-04 11:47 | Progress Note - Hospitalist ---
MIGUELANGEL FERRIS 06/04/23 1147: Subjective HPI/CC On Admission Date Seen by Provider: Jun 04, 2023 Time Seen by Provider: 10:25 Anemia Subjective/Events-last exam 06/04/2023: CC: Anemia HPI/update: Андрйе, 67M, is currently on bowel prep for a colonoscopy. He notes that he was not able to sleep due to the frequency of his bowel movements. He says he is tired and wants to be done with the diarrhea. He notes that he is not in pain. He also notes that he has been fatigued. He denies continued incontinence with urine. He has no other concerns. Андрей was not very talkative. He denies any other abdominal concerns other than the diarrhea. He denies any hematochezia, melena, or hematoemesis. It was also noted that he had bedbugs. Андрей still appears to have hygiene concerns, with him appearing to not having had been cleaned up recently. He is on clear liquids due to the colonoscopy and EGD. Surgery has talked with the patient. It is still believed that doing a colonoscopy and EGD has benefits that outweigh any harms and that he is a good candidate for these procedures. Review of Systems General: No Chills, No Night Sweats; Fatigue; No Malaise, No Appetite, No Other HEENT: No Head Aches, No Eye Pain Pulmonary: No Dyspnea; Cough; No Pleuritic Chest Pain, No Other Cardiovascular: No: Chest Pain, Palpitations, Orthopnea, Paroxysmal Noc. Dyspnea, Edema, Lt Headedness, Other Gastrointestinal: Diarrhea; No: Nausea, Vomiting, Abdominal Pain, Constipation, Melena, Hematochezia, Other Genitourinary: No Dysuria, No Frequency, No Incontinence, No Hematuria, No Retention, No Other Musculoskeletal: No: other, neck pain, shoulder pain, arm pain, back pain, hand pain, leg pain, foot pain Neurological: No: Weakness, Numbness, Incoordination, Change in speech, Confusion, Seizures, Other Objective Exam Vital Signs Vital Signs Date Time Temp Pulse Resp B/P (MAP) Pulse Ox O2 Delivery O2 Flow Rate FiO2 06/04/23 08:25 36.1 64 17 149/80 (103) 100 Nasal Cannula 1.50 Capillary Refill : General Appearance: No Apparent Distress, WD/WN, Cachetic, Thin HEENT: PERRL/EOMI, Pale Conjunctivae (L), Pale Conjunctivae (R) Neck: Full Range of Motion, Non Tender, Supple Respiratory: Chest Non Tender, Lungs Clear, No Accessory Muscle Use, No Respiratory Distress, Wheezing Cardiovascular: Regular Rate, Rhythm, No Edema, No Gallop, No JVD, No Murmur, Normal Peripheral Pulses Gastrointestinal: Normal Bowel Sounds, No Organomegaly, No Pulsatile Mass, Guarding; No Mass Rectal: Normal Exam, Deferred Back: Normal Inspection Extremity: Normal Capillary Refill, Normal Range of Motion, Non Tender, No Calf Tenderness Neurologic/Psychiatric: Alert, Oriented x3, No Motor/Sensory Deficits, Depressed Affect Skin: Normal Color, Warm/Dry Lymphatic: No Adenopathy Results/Procedures Lab Laboratory Tests 06/04/23 06:08 Patient resulted labs reviewed. 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 Diagnosis/Problems Diagnosis/Problems (1) Severe anemia Status: Acute Assessment & Plan: colonoscopy/EGD; CBC monitoring; blood if needed (2) Urinary tract infection Status: Acute Assessment & Plan: Rocephin Qualifiers: Qualified Codes: N30.00 - Acute cystitis without hematuria (3) Wheezing Status: Chronic Assessment & Plan: DuoNeb (4) Frequent falls Status: Acute Assessment & Plan: treat anemia (5) Continuous dependence on cigarette smoking Status: Chronic (6) Regular alcohol consumption Status: Chronic (7) Infestation by bed bug Status: Acute (8) Cannabis use disorder Status: Chronic Clinical Quality Measures DVT/VTE Risk/Contraindication: Contraindications-Pharm: Other *list below* Other: anemia SABINE SALVADOR DO 06/04/231948: Subjective Subjective/Events-last exam Bedbug infestation noted Patient appears to be very end-stage Colonoscopy today Objective Exam General Appearance: No Apparent Distress, WD/WN, Chronically ill, Cachetic, Thin Respiratory: Lungs Clear, Normal Breath Sounds Cardiovascular: Regular Rate, Rhythm Neurologic/Psychiatric: Alert, Oriented x3, Depressed Affect Assessment/Plan Assessment and Plan Assess & Plan/Chief Complaint Colonoscopy Placement Supervisory-Addendum Brief Verification & Attestation Participated in pt care: history, MDM, physical Personally performed: exam, history, MDM, supervision of care Care discussed with: Medical Student Procedures: n/a Results interpretation: Verified all documentation Verification and Attestation of Medical Student E/M Service A medical student performed and documented this service in my presence. I reviewed and verified all information documented by the medical student and made modifications to such information, when appropriate. I personally performed the physical exam and medical decision making. Saibne Salvador, Jun 04, 2023,19:48 MIGUELANGEL FERRIS Jun 04, 2023 11:47 SABINE SALVADOR DO Jun 04, 2023 19:49
--- NOTE | 2023-06-04 12:10 | Progress Note-Post Operative ---
Post-Operative Progess Note Surgeon (s)/Information Assurance Manager (s) Surgeon FIDENCIO NGUYEN DO Information Assurance Manager: Jasson Florentino, MSIII Pre-Operative Diagnosis Profound anemia Post-Operative Diagnosis Duodenal ulcer Gastritis Hiatal hernia Diverticula polyps int hemorrhoids Procedure & Operative Findings Date of Procedure 06/04/23 Procedure Performed/Findings EGD with biopsy Colonoscopy with snare polypectomy PROCEDURE NOTE: After informed consent was obtained, the patient was brought to the endoscopy suite, placed in bed in left lateral decubitus position. He was administered IV sedation by the AUTOMATED TELLER MANAGER who then monitored vitals the entire time, heart rate, blood pressure and pulse ox and the scope was inserted down the mouth through the esophagus into the stomach. On the way down, noted some mild esophagitis, took a picture, pushed into the stomach, pushed past the antrum into the duodenum. Duodenum looked like there may have been an ulcer and elected to do a biopsy of this area. Pulled back and did a biopsy of the antrum, then retroflexed the scope, saw small hiatal hernia, took a picture of this and then pulled the scope into the GE junction, took another picture of the hiatal hernia and then did a biopsy of the GE junction. Pushed the scope back into the stomach, suctioned all the air out of the stomach. At this point pulled the scope up the esophagus and out the mouth. Switched camera, switched gloves, went down below and started the colonoscopy. Pushed all the way to about 150 cm and pushed into the cecum, took a picture of appendiceal orifice and noted the ileocecal valve. Then slowly withdrew the scope insufflating to look circumferentially at the irby starting in the cecum, up the ascending colon to the hepatic flexure, then down the transverse colon, splenic flexure, into the descending colon down into the sigmoid. In between the sigmoid and rectum I found 4 small polyps removed with snare. Then into into the rectal vault where I found a large flat polyp that I removed in three pieces. Finally, retroflexed the scope and took a picture of the internal hemorrhoids. The patient tolerated the procedure and he recovered in the endoscopy suite. Recommended for repeat colonoscopy in 1 years Anesthesia Type IV sedation by AUTOMATED TELLER MANAGER Estimated Blood Loss Estimated blood loss (mL): scant Specimens/Packing Specimens Removed duodenal bx antral bx body of stomach bx GE jxn bx sigmoid/rectal polyps x 4 rectal polyp FIDENCIO NGUYEN DO Jun 04, 2023 12:10
--- NOTE | 2023-06-04 12:17 | Anesthesia-General Post-Op ---
MAC Patient Condition Mental Status/LOC: Same as Preop Cardiovascular: Satisfactory Nausea/Vomiting: Absent Respiratory: Satisfactory Pain: Controlled Complications: Absent Post Op Complications Complications None Follow Up Care/Instructions Patient Instructions None needed. Anesthesiology Discharge Order Discharge Order Patient is doing well, no complaints, stable vital signs, no apparent adverse anesthesia problems. No complications reported per nursing. RADHA CRYSTAL CRNA Jun 04, 2023 12:17
[2023-06-04] MEDS: GABAPENTIN 300 MG CAPSULE PO PRN (15:26)
[2023-06-05] VITALS (8 sets, daily range): BP systolic 118–159; BP diastolic 66–73
[2023-06-05] MEDS: RT-Ipratropium/Albuterol NEB 3 ML VIAL INH SCH ×4 (02:16→19:23)
[2023-06-05] MEDS: cefTRIAXone 1 GM/NS 50 ML IVPB IV SCH ×2 (03:00)
[2023-06-05 05:31] LABS: HEMATOCRIT 23 % (40-54); HEMOGLOBIN 7.3 g/dL (13.3-17.7); MEAN CORPUSCULAR HEMOGLOBIN 24 pg (25-34); MEAN CORPUSCULAR HGB CONC 31 g/dL (32-36); MEAN CORPUSCULAR VOLUME 78 fL (80-99); MEAN PLATELET VOLUME 9.2 fL (9.0-12.2); PLATELET COUNT 339 10^3/uL (130-400); WHITE BLOOD COUNT 7.5 10^3/uL (4.3-11.0)
[2023-06-05 05:56] LABS: BILIRUBIN,TOTAL 0.2 MG/DL (0.1-1.0); CALCIUM 8.3 MG/DL (8.5-10.1); CREATININE SERUM 0.74 MG/DL (0.60-1.30); POTASSIUM 4.3 MMOL/L (3.6-5.0); TOTAL PROTEIN 5.6 GM/DL (6.4-8.2)
--- NOTE | 2023-06-05 07:58 | Progress Note - Surgery ---
THU AG 06/05/23 0758: Subjective Date Seen by a Provider: Jun 05, 2023 Time Seen by a Provider: 07:53 Subjective/Events-last exam Pt states he feels tired, says he didn't get to sleep until 5:00 o'clock this morning. Pt denies any N/V. Pt states he hasn't had a BM since the colonoscopy yesterday. Pt says he did not have dark stools or blood in his stool even before the colonoscopy. Pt states his lungs are doing better since his nebulizer tx. Pt has resumed a normal diet since the procedures yesterday. Pt states he was starving last night and has been eating well. Pt says his body aches from lying in the bed all weak but denies any other pain, including no pain or trouble swallowing since the procedures. Review of Systems General: No Chills, No Night Sweats HEENT: No Head Aches, No Visual Changes Pulmonary: No Dyspnea; Cough Cardiovascular: No: Chest Pain, Palpitations Gastrointestinal: Abdominal Pain (a little this morning because he thinks he ate too much last night); No: Nausea, Vomiting, Melena, Hematochezia Genitourinary: No Dysuria, No Hematuria Neurological: No: Weakness, Numbness Objective Exam Vital Signs Date Time Temp Pulse Resp B/P (MAP) Pulse Ox O2 Delivery O2 Flow Rate FiO2 06/05/23 07:15 36.9 78 16 130/66 (87) 98 Room Air 06/05/23 03:14 37.0 85 16 118/73 (88) 96 Room Air 06/04/23 23:50 37.2 92 16 122/72 (89) 96 Room Air 06/04/23 20:46 Room Air 06/04/23 19:08 37.4 97 16 114/74 (87) 96 06/04/23 15:47 36.4 73 16 145/85 (105) 100 Room Air 06/04/23 14:24 96 Room Air 06/04/23 12:55 36.2 69 17 161/93 (115) 96 Room Air 06/04/23 12:20 74 16 97 Room Air 06/04/23 12:15 75 16 100 OxyMask 10.00 06/04/23 12:10 77 16 100 OxyMask 10.00 06/04/23 12:05 78 16 100 OxyMask 10.00 06/04/23 08:25 36.1 64 17 149/80 (103) 100 Nasal Cannula 1.50 06/04/23 08:00 Room Air I & O 06/05/23 07:00 Intake Total 2620 ml Output Total 1995 ml Balance 625 ml Capillary Refill : General Appearance: No Apparent Distress, Chronically ill, Thin Neck: Non Tender; No JVD Respiratory: Lungs Clear, Normal Breath Sounds, No Respiratory Distress; No Crackles (none heard today), No Wheezing (none heard today) Cardiovascular: Regular Rate, Rhythm (HR 78), No Murmur Peripheral Pulses: 2+ Carotid (R), 2+ Carotid (L), 2+ Dorsalis Pedis (R), 2+ Left Dors-Pedis (L), 2+ Radial Pulses (R), 2+ Radial Pulses (L) Gastrointestinal: non tender, soft Neurologic/Psychiatric: Alert, Oriented x3, Depressed Affect Skin: Normal Color, Warm/Dry Results Lab Laboratory Tests 06/05/23 05:20: White Blood Count 7.5, Red Blood Count 3.01L, Hemoglobin 7.3L, Hematocrit 23L, Mean Corpuscular Volume 78L, Mean Corpuscular Hemoglobin 24L, Mean Corpuscular Hemoglobin Concent 31L, Red Cell Distribution Width , Platelet Count 339, Mean Platelet Volume 9.2, Sodium Level 131L, Potassium Level 4.3, Chloride Level 101, Carbon Dioxide Level 22, Anion Gap 8, Blood Urea Nitrogen 9, Creatinine 0.74, Estimat Glomerular Filtration Rate 100, BUN/Creatinine Ratio 12, Glucose Level 98, Calcium Level 8.3L, Corrected Calcium 9.1, Total Bilirubin 0.2, Aspartate Amino Transf (AST/SGOT) 12, Alanine Aminotransferase (ALT/SGPT) 11, Alkaline Phosphatase 67, Total Protein 5.6L, Albumin 3.0L Microbiology 05/31/23 Urine Culture - Final, Complete Escherichia coli Assessment/Plan Assessment/Plan Assessment/Plan Severe Anemia - consistent values around current of: 3.01 RBC, 7.3 Hgb, 23 Hct, 26 RDW COPD HTN - has been resolved for the last 4 readings since yesterday at 7:08pm, latest being 130/66 at 7:15am today. S/P colonoscopy and EGD. Nothing abnormal found to account for the severe anemia. Continue medical management of chronic conditions. Clinical Quality Measures DVT/VTE Risk/Contraindication: Contraindications-Pharm: Other *list below* Other: anemia SEE COLLAZO DO 06/05/23 1331: Subjective Time Seen by a Provider: 11:14 Subjective/Events-last exam Pt seen and examined, denies pain and no new complaints. Tolerating diet. Review of Systems General: No Chills, No Night Sweats; Fatigue Pulmonary: No Dyspnea; Cough Cardiovascular: No: Chest Pain, Palpitations Gastrointestinal: Abdominal Pain (a little this morning because he thinks he ate too much last night); No: Nausea, Vomiting Objective Exam General Appearance: No Apparent Distress, Chronically ill, Thin Respiratory: Lungs Clear, Normal Breath Sounds, No Respiratory Distress; No Crackles (none heard today), No Wheezing (none heard today) Cardiovascular: Regular Rate, Rhythm (HR 78), No Murmur Gastrointestinal: non tender, soft Neurologic/Psychiatric: Alert, Oriented x3, Depressed Affect Assessment/Plan Assessment/Plan Assessment/Plan Severe Anemia - consistent values around current of: 3.01 RBC, 7.3 Hgb, 23 Hct, 26 RDW COPD HTN - has been resolved for the last 4 readings since yesterday at 7:08pm, latest being 130/66 at 7:15am today. S/P colonoscopy and EGD. Nothing abnormal found to account for the severe anemia. Continue medical management of chronic conditions. Ok to d/c from surgery standpoint, will defer to Medicine. Will sign off and reconsult if needed. Pt needs repeat colonoscopy in a year, because of large polyp removed from rectum. Can follow up in my clinic in a week. Supervisory-Addendum Brief Verification & Attestation Participated in pt care: history, MDM, physical Personally performed: exam, history, MDM, supervision of care Care discussed with: Medical Student Procedures: n/a Verification and Attestation of Medical Student E/M Service A medical student performed and documented this service. I then reviewed and verified all information documented by the medical student and made modifications to such information, when appropriate. I personally performed a physical exam, medical decision making and then discussed any differences between the notes and made revisions as necessary to create one note. See Collazo , 06/05/23 , 13:30 THU AG Jun 05, 2023 07:58 SEE COLLAZO DO Jun 05, 2023 13:31
[2023-06-05] MEDS: GABAPENTIN 300 MG CAPSULE PO PRN ×2 (08:08→20:05)
[2023-06-05] MEDS: NICOTINE 14 MG PATCH TD SCH (08:08)
--- NOTE | 2023-06-05 09:28 | Progress Note - Hospitalist ---
MIGUELANGEL FERRIS 06/05/23 0928: Subjective HPI/CC On Admission Date Seen by Provider: Jun 05, 2023 Time Seen by Provider: 08:50 Anemia Subjective/Events-last exam 06/05/2023: CC: Anemia HPI/Update: Андрей, 67M, notes that last night he was able to sleep much better. He said that yesterday he was unable to sleep due to his bowel prep for his EGD and colonoscopy. Андрей notes that he felt like the procedures went well and he has no concerns about them . Андрей wanted to know what was found, to which he was informed that his surgeon would discuss. Андрей notes that he is in slight pain, 4/10, but that this is constant and has been present since before hospital admission. Furthermore, Андрей notes that he doesn't have any dizziness or light headedness. He also says that he has been able to ambulate. Additionally, Андрей appears to be much switch cleaner today. There appears to be no more issues with bedbugs in his room or on his person. Андрей denies any BRBPR, hematochezia, melena, or hematoemesis. He appears to be in good spirits. Андрей has been able to eat today and has had no issues with this. There are no other concerns. Андрей completed his Rocephin course yesterday (06/04). Review of Systems General: No Chills, No Night Sweats; Fatigue (mild); No Malaise, No Appetite, No Other HEENT: No Head Aches, No Visual Changes, No Eye Pain, No Ear Pain, No Dysphasia, No Sinus Congestion, No Post Nasal Drip, No Sore Throat, No Other Pulmonary: No Dyspnea, No Cough, No Pleuritic Chest Pain, No Other Cardiovascular: No: Chest Pain, Palpitations, Orthopnea, Paroxysmal Noc. Dyspnea, Edema, Lt Headedness, Other Gastrointestinal: No: Nausea, Vomiting, Abdominal Pain, Diarrhea, Constipation, Melena, Hematochezia, Other Genitourinary: No Dysuria, No Frequency, No Incontinence, No Hematuria, No Retention, No Other Musculoskeletal: No: other, neck pain, shoulder pain, arm pain, back pain, hand pain, leg pain, foot pain Neurological: No: Weakness, Numbness, Incoordination, Change in speech, Confusion, Seizures, Other Objective Exam Vital Signs Vital Signs Date Time Temp Pulse Resp B/P (MAP) Pulse Ox O2 Delivery O2 Flow Rate FiO2 06/05/23 08:00 98 Room Air 06/05/23 07:15 36.9 78 16 130/66 (87) 06/04/23 12:15 10.00 Capillary Refill : General Appearance: No Apparent Distress, WD/WN HEENT: PERRL/EOMI, Pale Conjunctivae (L), Pale Conjunctivae (R) Neck: Full Range of Motion, Normal Inspection, Non Tender, Supple Respiratory: Chest Non Tender, Lungs Clear, Normal Breath Sounds, No Accessory Muscle Use, No Respiratory Distress Cardiovascular: Regular Rate, Rhythm, No Edema, No Gallop, No JVD, Normal Peripheral Pulses Gastrointestinal: Normal Bowel Sounds, No Pulsatile Mass, Non Tender, Soft Rectal: Normal Exam, Deferred Back: Normal Inspection, No Vertebral Tenderness Extremity: Normal Capillary Refill, Normal Inspection, Normal Range of Motion, Non Tender, No Calf Tenderness Neurologic/Psychiatric: Alert, Oriented x3, No Motor/Sensory Deficits, Normal Mood/Affect Skin: Normal Color, Warm/Dry, Other (skin is itchy) Lymphatic: No Adenopathy Results/Procedures Lab Laboratory Tests 06/05/23 05:20 Patient resulted labs reviewed. 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 Diagnosis/Problems Diagnosis/Problems (1) Severe anemia Status: Acute Assessment & Plan: colonoscopy/EGD; CBC monitoring; blood if needed (2) Wheezing Status: Chronic Assessment & Plan: DuoNeb (3) Frequent falls Status: Acute Assessment & Plan: treat anemia (4) Continuous dependence on cigarette smoking Status: Chronic (5) Regular alcohol consumption Status: Chronic (6) Cannabis use disorder Status: Chronic (7) Urinary tract infection Status: Resolved Assessment & Plan: Rocephin Qualifiers: Qualified Codes: N30.00 - Acute cystitis without hematuria Resolution Date/Time: 06/05/23 @ 09:32 (8) Infestation by bed bug Status: Acute Clinical Quality Measures DVT/VTE Risk/Contraindication: Contraindications-Pharm: Other *list below* Other: anemia SABINE SALVADOR DO 06/05/23 1943: Subjective Subjective/Events-last exam Hgb stable IV iron infusions maintained Supervisory-Addendum Brief Verification & Attestation Participated in pt care: history, MDM, physical Personally performed: exam, history, MDM, supervision of care Care discussed with: Medical Student Procedures: n/a Results interpretation: Verified all documentation Verification and Attestation of Medical Student E/M Service A medical student performed and documented this service in my presence. I reviewed and verified all information documented by the medical student and made modifications to such information, when appropriate. I personally performed the physical exam and medical decision making. Sabine Salvador, Jun 05, 2023,19:39 MIGUELANGEL FERRIS Jun 05, 2023 09:28 SABINE SALVADOR DO Jun 05, 2023 19:43
--- NOTE | 2023-06-05 10:30 | Physical Therapy Progress Note ---
Therapy Progress Note Patient declined PT due to fatigue. PT attempted to educate patient on importance of participating with skilled PT to increase strength and mobility, however, patient continued to decline. Will attempt tomorrow TAMMY Bradford PT Jun 05, 2023 10:30
--- NOTE | 2023-06-05 13:31 | Endoscopy Discharge Instruct ---
Endo Procedure/Findings Findings 1.: Hiatal Hernia, Gastritis 2.: Polyp 3.: Diverticulosis 4.: Internal Hemorrhoids Discharge Instructions - Activity: You might feel a little sleepy until tomorrow. This is due to the medicine you received to relax you. Until tomorrow, you should: NOT drive a car, operate machinery or power tools. NOT drink any alcoholic beverages. NOT make any important decisions or sign importortant papers. Do not return to work until tomorrow, unless otherwise instructed. Resume previous activities tomorrow. Diet: Start by taking liquids. If you tolerate liquids, advance to solid food. 1.: Colonoscopy in 1 year 2.: EGD in 3 years Notify Physician - If you experience excessive bleeding, unusual abdominal pain, fever, or chest pain, contact your doctor immediately. Follow-Up: Reconcile Patient Problems Problems: (1) Severe anemia (2) Wheezing (3) Frequent falls (4) Continuous dependence on cigarette smoking (5) Regular alcohol consumption (6) Cannabis use disorder (7) Urinary tract infection Qualifiers: Qualified Codes: N30.00 - Acute cystitis without hematuria (8) Infestation by bed bug Other Follow up in my office in one week FIDENCIO NGUYEN DO Jun 05, 2023 13:31
--- NOTE | 2023-06-05 13:53 | Physical Therapy Daily Note ---
PT Daily Note-Current Subjective Patient lying supine in bed upon PT arrival, agreeable to treatment. Patient rates pain at 8/10 in low back which increases upon standing. Pain Section J - Health Conditions 1. Rarely or not at all 2. Occasionally 3. Frequently 4. Almost constantly 8. Unable to answer Pain Effect on Sleep: 1 Pain Interference with Therapy: 3 Pain Interference w/Day-to-Day: 3 Transfers SCALE: Activities may be completed with or without assistive devices. 4-Fmoaczxatk-jlltkpc completes the activity by him/herself with no assistance from a helper. 5-Set-up or Clean-up Assistance-helper sets up or cleans up; patient completes activity. [place] assists only prior to or following the activity. 4-Supervision or Touching Assistance-helper provides verbal cues and/or touching/steadying and/or contact guard assistance as patient completes activi ty. Assistance may be provided throughout the activity or intermittently. 3-Partial/Moderate Assistance-helper does LESS THAN HALF the effort. [place] lifts, holds or supports trunk or limbs, but provides less than half the effort. 2-Substantial/Maximal Assistance-helper does MORE THAN HALF the effort. [place] lifts or holds trunk or limbs and provides more than half the effort. 7-Ugrookdkl-fbclrp does ALL the effort. Patient does none of the effort to complete the activity. Or, the assistance of 2 or more helpers is required for the patient to complete the activity. If activity was not attempted, code reason: 7-Patient Refused. 9-Not Applicable-not attempted and the patient did not perform the activity before the current illness, exacerbation or injury. 10-Not Attempted due to Environmental Limitations-(lack of equipment, weather restraints, etc.). 88-Not Attempted due to Medical Conditions or Safety Concerns. Roll Left & Right (QC): 4 Sit to Lying (QC): 4 Lying to Sitting/Side of Bed(Q: 4 Sit to Stand (QC): 4 Chair/Rdk-wl-Anqlg Xfer(QC): 4 Weight Bearing Right Lower Extremity: Right Full Weight Bearing Left Lower Extremity: Left Full Weight Bearing Gait Training Does the Patient Walk?: Yes Distance: 68' Walk 10 feet (QC): 4 Walk 50 ft with 2 Turns(QC): 3 Gait Persons Needed: 1 Gait Assistive Device: FWW Assessment Current Status: Poor Progress Patient performs all bed mobility and transfers with SBA/CGA. Patient ambulates 68 feet with FWW, with min A and verbal cues for safety, progression, posture and balance. Patient demonstrates an moderate to severe accentuated thoracic kyphosis. Patient ambulates with narrow ANGELITA, overly exaggerated stride length, what appears to be right drop foot however improves with gait, and decreased balance when he begins to report "My legs are completely numb." Patients whole body shakes and his knees give out on 2 occassions, however was able to maintain standing with mod A from PT. Patient in bed post treatment with all needs met, nursing notified, call light in hand. PT Frame Polisher Goals Frame Polisher Goals PT Frame Polisher Goals Time Frame: Jun 09, 2023 Roll Left & Right (QC): 6 Sit to Lying (QC): 6 Lying-Sitting on Side/Bed(QC): 6 Sit to Stand (QC): 6 Chair/Cvj-kr-Tbekw Xfer(QC): 6 Toilet Transfer (QC): 6 Car Transfer (QC): 6 Does the Patient Walk: Yes Walk 10 feet (QC): 5 Walk 50ft with 2 Turns (QC): 5 Walk 150 ft (QC): 5 Walking 10ft on Uneven Surface: 5 1 Step (curb) (QC): 5 4 Steps (QC): 5 12 Steps (QC): 5 Picking up an Object (QC): 5 PT Plan Treatment/Plan Treatment Plan: Continue Plan of Care Treatment Plan: Bed Mobility, Functional Activity Elio, Functional Strength, Gait, Safety, Therapeutic Exercise, Transfers Treatment Duration: Jun 09, 2023 Frequency: 6 times per week Estimated Hrs Per Day: .5 hour per day Patient and/or Family Agrees t: Yes Safety Risks/Education Patient Education: Gait Training, Transfer Techniques Teaching Recipient: Patient Teaching Methods: Demonstration, Discussion Response to Teaching: Reinforcement Needed Time Time In: 1330 Time Out: 1344 DATE: Jun 05, 2023 Total Billed Treatment Time: 14 Total Billed Treatment Visit, Gait MARVIN ZENG PT Jun 05, 2023 13:53
[2023-06-05] MEDS ORDERED: ACETAMINOPHEN 325 MG TABLET PO PRN (19:45)
[2023-06-05] MEDS ORDERED: MILK OF MAGNESIA 400 MG/5 ML 30 ML UDC PO PRN (19:45)
[2023-06-05] MEDS ORDERED: ONDANSETRON 4 MG ORAL DISSOLVE TABLET PO PRN (19:45)
[2023-06-05] MEDS ORDERED: diphenhydrAMINE 25 MG TABLET PO PRN (19:45)
[2023-06-05] MEDS ORDERED: ONDANSETRON INJECTION 4 MG/2 ML (SDV) IV PRN (19:45)
[2023-06-05] MEDS ORDERED: CALCIUM CARBONATE 500 MG CHEW TABLET PO PRN (19:45)
[2023-06-05] MEDS ORDERED: MELATONIN 3 MG TABLET PO PRN (19:45)
[2023-06-05] MEDS ORDERED: oxyCODONE IMMEDIATE RELEASE 5 MG TABLET PO PRN (19:45)
[2023-06-05] MEDS ORDERED: HYDROmorphone INJECTION 2 MG/ML VIAL IV PRN (19:45)
[2023-06-05] MEDS ORDERED: LACTULOSE SYRUP 10GM/15ML 30ML UDC PO PRN (19:45)
[2023-06-05] MEDS ORDERED: BISACODYL 10 MG SUPPOSITORY PR PRN (19:45)
[2023-06-05] MEDS ORDERED: ANTACID SUSPENSION 30 ML UDC PO PRN (19:45)
[2023-06-05] MEDS ORDERED: diphenhydrAMINE INJ 50 MG/ML VIAL IVP PRN (19:45)
[2023-06-05] MEDS: SENNOSIDES 8.6 MG TABLET PO SCH (20:05)
[2023-06-05] MEDS: DOCUSATE SODIUM 100 MG CAPSULE PO SCH (20:05)
[2023-06-05] MEDS ORDERED: RT-Ipratropium/Albuterol NEB 3 ML VIAL INH PRN (20:15)
[2023-06-06] VITALS (10 sets, daily range): BP systolic 108–162; BP diastolic 56–78
[2023-06-06 05:35] LABS: HEMATOCRIT 22 % (40-54); MEAN CORPUSCULAR HEMOGLOBIN 24 pg (25-34); MEAN CORPUSCULAR HGB CONC 31 g/dL (32-36); MEAN CORPUSCULAR VOLUME 77 fL (80-99); MEAN PLATELET VOLUME 8.9 fL (9.0-12.2); PLATELET COUNT 335 10^3/uL (130-400)
[2023-06-06 05:57] LABS: HEMOGLOBIN 6.9 g/dL (13.3-17.7)
[2023-06-06 06:05] LABS: ALBUMIN 2.9 GM/DL (3.2-4.5); BILIRUBIN,TOTAL 0.2 MG/DL (0.1-1.0); CALCIUM 8.2 MG/DL (8.5-10.1); CREATININE SERUM 0.6 MG/DL (0.60-1.30); POTASSIUM 3.9 MMOL/L (3.6-5.0); TOTAL PROTEIN 5.4 GM/DL (6.4-8.2)
[2023-06-06] MEDS ORDERED: NS IV 500 ML 500 ML IV SCH (07:15)
[2023-06-06] MEDS: SENNOSIDES 8.6 MG TABLET PO SCH ×2 (09:20→21:08)
[2023-06-06] MEDS: IRON SUCROSE 200 MG/10 ML VIAL IV SCH (09:20)
[2023-06-06] MEDS: DOCUSATE SODIUM 100 MG CAPSULE PO SCH ×2 (09:20→21:08)
[2023-06-06] MEDS: NICOTINE 14 MG PATCH TD SCH (09:21)
[2023-06-06] MEDS ORDERED: NS IV 500 ML 500 ML ONE (10:11)
--- NOTE | 2023-06-06 12:28 | Progress Note - Hospitalist ---
MIGUELANGEL FERRIS 06/06/23 1228: Subjective HPI/CC On Admission Date Seen by Provider: Jun 06, 2023 Time Seen by Provider: 11:05 Anemia Subjective/Events-last exam 06/06/2023: CC: Severe Anemia HPI/Update: Андрей, 68M, notes that he is feeling very tired. He says that it is in part due to frequent interruptions, so he is hoping to have some time to take a nap today. He says that when he was able to be asleep, it was restful. He notes that he is not in any pain currently, has not had a headache, and does not report any dizziness. He still appears slightly pale, but overall appears to be in good spirits. He is very polite and appreciative of the healthcare team. He also notes that he has not seen any bedbugs. Moreover, he says that he still hasn't had a BM since his colonoscopy, but he is eating well and has an appetite. He is not moving around much due to his fatigue. He has no other concerns. HgB was 6.9, given 1 unit of blood Elevated BP today Review of Systems General: No Chills, No Night Sweats; Fatigue; No Malaise; Appetite; No Other HEENT: No Head Aches, No Visual Changes, No Eye Pain, No Ear Pain, No Dysphasia, No Sinus Congestion, No Post Nasal Drip, No Sore Throat, No Other Pulmonary: No Dyspnea, No Cough, No Pleuritic Chest Pain, No Other Cardiovascular: No: Chest Pain, Palpitations, Orthopnea, Paroxysmal Noc. Dyspnea, Edema, Lt Headedness, Other Gastrointestinal: Constipation; No: Nausea, Vomiting, Abdominal Pain, Diarrhea, Melena, Hematochezia, Other Genitourinary: No Dysuria, No Frequency, No Incontinence, No Hematuria, No Retention, No Other Musculoskeletal: No: other, neck pain, shoulder pain, arm pain, back pain, hand pain, leg pain, foot pain Neurological: No: Weakness, Numbness, Incoordination, Change in speech, Confusion, Seizures, Other Objective Exam Vital Signs Vital Signs Date Time Temp Pulse Resp B/P (MAP) Pulse Ox O2 Delivery O2 Flow Rate FiO2 06/06/23 12:00 Room Air 06/06/23 11:58 36.2 77 18 140/77 (98) 99 06/05/23 19:55 21 06/04/23 12:15 10.00 Capillary Refill : General Appearance: No Apparent Distress, WD/WN HEENT: PERRL/EOMI, Moist Mucous Membranes, Pale Conjunctivae (L), Pale Conjunctivae (R); No Scleral Icterus (L), No Scleral Icterus (R) Neck: Full Range of Motion, Normal Inspection, Non Tender, Supple Respiratory: Chest Non Tender, Lungs Clear, Normal Breath Sounds, No Accessory Muscle Use, No Respiratory Distress Cardiovascular: Regular Rate, Rhythm, No Edema, No Gallop, No JVD, No Murmur, Normal Peripheral Pulses; No JVD, No Tachycardia Gastrointestinal: Normal Bowel Sounds, No Organomegaly, No Pulsatile Mass, Non Tender, Soft Rectal: Deferred; No Black Stool, No Heme Positive Stool; Hemorrhoids (internal) Back: Normal Inspection (kyphosis), No Vertebral Tenderness Extremity: Normal Capillary Refill, Normal Inspection, Normal Range of Motion, Non Tender, No Calf Tenderness Neurologic/Psychiatric: Alert, Oriented x3, No Motor/Sensory Deficits, Normal Mood/Affect Skin: Warm/Dry; No Diaphoresis, No Ecchymosis, No Erythema, No Petechia Lymphatic: No Adenopathy Results/Procedures Lab Laboratory Tests 06/06/23 05:25 Patient resulted labs reviewed. 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 06/06/2023: Assessment: * Severe Anemia * COPD * Nutritional Concerns * Smoking Plan: * 1 unit O+ blood * Iron Supplement * Await biopsies * CBC daily * Nebulizer * Encourage food * Nicotine Diagnosis/Problems Diagnosis/Problems (1) Severe anemia Status: Acute Assessment & Plan: CBC monitoring; blood if needed (2) Frequent falls Status: Acute Assessment & Plan: treat anemia (3) Continuous dependence on cigarette smoking Status: Chronic (4) Regular alcohol consumption Status: Chronic (5) Cannabis use disorder Status: Chronic (6) Wheezing Status: Chronic Assessment & Plan: DuoNeb (7) Infestation by bed bug Status: Acute (8) Urinary tract infection Status: Resolved Assessment & Plan: Rocephin Qualifiers: Qualified Codes: N30.00 - Acute cystitis without hematuria Resolution Date/Time: 06/05/23 @ 09:32 Clinical Quality Measures DVT/VTE Risk/Contraindication: Contraindications-Pharm: Other *list below* Other: anemia SABINE SALVADOR DO 06/06/232030: Subjective Subjective/Events-last exam Patient doing about the same Transfusing 1 more unit Objective Exam General Appearance: No Apparent Distress, WD/WN, Chronically ill Respiratory: Lungs Clear, Normal Breath Sounds Cardiovascular: Regular Rate, Rhythm, No Edema Assessment/Plan Assessment and Plan Assess & Plan/Chief Complaint Supportive care Transfuse unit of blood Supervisory-Addendum Brief Verification & Attestation Participated in pt care: history, MDM, physical Personally performed: exam, history, MDM, supervision of care Care discussed with: Medical Student Procedures: n/a Results interpretation: Verified all documentation Verification and Attestation of Medical Student E/M Service A medical student performed and documented this service in my presence. I reviewed and verified all information documented by the medical student and made modifications to such information, when appropriate. I personally performed the physical exam and medical decision making. Sabine Salvador Jun 06, 2023,20:30 MIGUELANGEL FERRIS Jun 06, 2023 12:28 SABINE SALVADOR DO Jun 06, 2023 20:31
--- NOTE | 2023-06-06 14:51 | Physical Therapy Progress Note ---
Therapy Progress Note Attempted to see patient for PT treatment. Patient on the phone and did not acknowledge PT. Will attempt again tomorrow. MARVIN ZENG PT Jun 06, 2023 14:51
[2023-06-07 04:54] VITALS: BP 166/81
[2023-06-07 05:31] LABS: HEMATOCRIT 27 % (40-54); HEMOGLOBIN 8.4 g/dL (13.3-17.7); MEAN CORPUSCULAR HEMOGLOBIN 25 pg (25-34); MEAN CORPUSCULAR HGB CONC 32 g/dL (32-36); MEAN CORPUSCULAR VOLUME 78 fL (80-99); MEAN PLATELET VOLUME 8.8 fL (9.0-12.2); PLATELET COUNT 358 10^3/uL (130-400); WHITE BLOOD COUNT 8.3 10^3/uL (4.3-11.0)
[2023-06-07 05:57] LABS: ALBUMIN 3.2 GM/DL (3.2-4.5); BILIRUBIN,TOTAL 0.3 MG/DL (0.1-1.0); CALCIUM 8.6 MG/DL (8.5-10.1); CREATININE SERUM 0.62 MG/DL (0.60-1.30); POTASSIUM 4.2 MMOL/L (3.6-5.0)
[2023-06-07 08:21] VITALS: BP 158/85
[2023-06-07] MEDS: NICOTINE 14 MG PATCH TD SCH (09:00)
[2023-06-07] MEDS: SENNOSIDES 8.6 MG TABLET PO SCH ×2 (09:00→20:27)
[2023-06-07] MEDS: DOCUSATE SODIUM 100 MG CAPSULE PO SCH ×2 (09:00→20:27)
--- NOTE | 2023-06-07 10:32 | Physical Therapy Progress Note ---
Therapy Progress Note Patient adamantly declined PT on this date stating, "I didn't sleep and I'm not doing anything today." PT attempted to educate and encourage patient to participate with in room activity, exercise, etc, however, patient continued to declined PT. RN notified. TAMMY YOUNG PT Jun 07, 2023 10:32
[2023-06-07 12:08] VITALS: BP 153/89
[2023-06-07 16:00] VITALS: BP 138/82
[2023-06-07 20:00] VITALS: BP 152/76
--- NOTE | 2023-06-07 21:31 | Progress Note - Hospitalist ---
Subjective HPI/CC On Admission Date Seen by Provider: Jun 07, 2023 Time Seen by Provider: 11:00 Anemia Subjective/Events-last exam No complaints Ready for DC tomorrow on Objective Exam Vital Signs Vital Signs Date Time Temp Pulse Resp B/P (MAP) Pulse Ox O2 Delivery O2 Flow Rate FiO2 06/08/23 03:23 71 18 135/69 (91) 95 Room Air 06/07/23 20:00 36.7 2.00 06/05/23 19:55 21 Capillary Refill : General Appearance: No Apparent Distress, WD/WN, Chronically ill Results/Procedures Lab Laboratory Tests 06/07/23 05:07 Patient resulted labs reviewed. Imaging: Reviewed Imaging Films Assessment/Plan Assessment and Plan Assess & Plan/Chief Complaint Assessment: Severe anemia Colon polyps Plan: DC tomorrow Clinical Quality Measures DVT/VTE Risk/Contraindication: Contraindications-Pharm: Other *list below* Other: anemia NISH SALVADOR DO Jun 07, 2023 21:31
[2023-06-08 03:23] VITALS: BP 135/69
--- NOTE | 2023-06-08 05:27 | D/C HH Face to Face Order ---
D/C HH Face to Face Orders Reconcile Patient Problems Problems Reviewed?: Yes Instructions for Patient HH Patient Instructions/FollowUp: pcp 1 week Physician to follow Patient: chc Discharge Diet for Home: No Restrictions Patient Problems: anemia Patient Data-Allergies,Ht & Wt Patient Allergies: Coded Allergies: No Known Drug Allergies (Unverified , 09/24/12) Home Health Need/Face to Face Date of Face to Face: Jun 08, 2023 Clinical Findings: Generalized weakness and fatigue, Instability, Muscle wea kness I have seen Pt [id number]: Yes Discharged To: Home Diagnosis/Conditions: anemia Patient is Homebound due to: [place] fall risk due to instabilty, Muscle weakness Homebound Status Due to the above stated illness, injury or surgical procedure (medical condi tion or diagnosis) and associated clinical findings, the patient is homebound because of his/her inability to leave home except with aid of a supportive device and/or person AND leaving the home requires a considerable and taxing effort or is medically contraindicated. Pt req the following assistanc: [facility] Nursing Orders Home Health Services Order: Nursing Services, Conservation Scientist-Evaluate & Treat, Physical Therapy-Evaluate & Treat Home Health Infusion Therapy Line Start Date: May 31, 2023 Certify Stmt I certify that this patient is under my care and that I, a nurse practitioner or a physician; a esl instructional assistant working with me, had a face to face encounter that - meets the physician face to face encounter requirements with this patient as dated. NISH SALVADOR DO Jun 08, 2023 05:27
--- NOTE | 2023-06-08 05:28 | Discharge Summary ---
Discharge Summary Hospital Course Was the Problem List Reviewed?: Yes Problems/Dx: (1) Severe anemia Status: Acute (2) Frequent falls Status: Acute (3) Continuous dependence on cigarette smoking Status: Chronic (4) Regular alcohol consumption Status: Chronic (5) Cannabis use disorder Status: Chronic (6) Wheezing Status: Chronic (7) Infestation by bed bug Status: Acute (8) Urinary tract infection Status: Resolved Qualifiers: Qualified Codes: N30.00 - Acute cystitis without hematuria Hospital Course Date of Admission: May 31, 2023 at 17:30 Admission Diagnosis : Family Physician/Provider: No,Local Physician Date of Discharge: 06/08/23 Discharge Diagnosis: [ ] Hospital Course: Uneventful course after he was admitted for severe symptomatic anemia requiring multiple blood transfusions. Iron def noted so given iron infusions. Overall he had no events and underwent EGD and colonoscopy which revealed no significant source of the anemia but did have tubular adenomas so he will need repeat in future. Labs and Pending Lab Test: Microbiology 05/31/23 Urine Culture - Final, Complete Escherichia coli Home Meds Active No Active Prescriptions or Reported Medications Assessment/Pt Instructions pcp 1 week Discharge Planning: <30 minutes discharge planning Discharge Instructions Discharge Diet: No Restrictions Activity as Tolerated: Yes Discharge Physical Examination Vital Signs Vital Signs Date Time Temp Pulse Resp B/P (MAP) Pulse Ox O2 Delivery O2 Flow Rate FiO2 06/08/23 03:23 71 18 135/69 (91) 95 Room Air 06/07/23 20:00 36.7 2.00 06/05/23 19:55 21 General Appearance: No Apparent Distress, WD/WN, Chronically ill Allergies: Coded Allergies: No Known Drug Allergies (Unverified , 09/24/12) Discharge Summary Date of Admission May 31, 2023 at 17:30 Date of Discharge Discharge Date: Jun 08, 2023 Discharge Diagnosis Assessment: Severe anemia Colon polyps Plan: DC tomorrow (1) Severe anemia Status: Acute Assessment & Plan: CBC monitoring; blood if needed (2) Frequent falls Status: Acute Assessment & Plan: treat anemia (3) Continuous dependence on cigarette smoking Status: Chronic (4) Regular alcohol consumption Status: Chronic (5) Cannabis use disorder Status: Chronic (6) Wheezing Status: Chronic Assessment & Plan: DuoNeb (7) Infestation by bed bug Status: Acute (8) Urinary tract infection Status: Resolved Assessment & Plan: Rocephin Qualifiers: Qualified Codes: N30.00 - Acute cystitis without hematuria Clinical Quality Measures DVT/VTE Risk/Contraindication: Contraindications-Pharm: Other *list below* Other: anemia NISH SALVADOR DO Jun 08, 2023 05:28
[2023-06-08 08:36] VITALS: BP 140/70
[2023-06-08] MEDS: DOCUSATE SODIUM 100 MG CAPSULE PO SCH (09:34)
[2023-06-08] MEDS: IRON SUCROSE 200 MG/10 ML VIAL IV SCH (09:34)
[2023-06-08] MEDS: SENNOSIDES 8.6 MG TABLET PO SCH (09:34)
[2023-06-08] MEDS: NICOTINE 14 MG PATCH TD SCH (09:34)
[2023-06-08 12:23] VITALS: BP 126/69
== END 2023-06-08 15:35 | disposition home or self-care (01) | DRG 812 ==
LOC: EDUNIT# 13:51 → ER FS 13:52 → CSD 17:30 → 4TH 06-03 12:14
PROVIDERS: ADMIT Family Medicine; ATTEND Internal Medicine
PROC: 0DB68ZX Excision of Stomach, Via Natural or Artificial Opening Endoscopic, Diagnostic (ICD-10-PCS; 2023-06-04)
PROC: 0DB48ZX Excision of Esophagogastric Junction, Via Natural or Artificial Opening Endoscopic, Diagnostic (ICD-10-PCS; 2023-06-04)
PROC: 0DBP8ZZ Excision of Rectum, Via Natural or Artificial Opening Endoscopic (ICD-10-PCS; 2023-06-04)
PROC: 0DBN8ZZ Excision of Sigmoid Colon, Via Natural or Artificial Opening Endoscopic (ICD-10-PCS; 2023-06-04)
PROC: 0DB98ZX Excision of Duodenum, Via Natural or Artificial Opening Endoscopic, Diagnostic (ICD-10-PCS; principal; 2023-06-04 11:20)
PROC: 0DB78ZX Excision of Stomach, Pylorus, Via Natural or Artificial Opening Endoscopic, Diagnostic (ICD-10-PCS; 2023-06-04 11:20)
DX: D50.9 Iron deficiency anemia, unspecified (principal); E87.1 Hypo-osmolality and hyponatremia; N39.0 Urinary tract infection, site not specified; F17.210 Nicotine dependence, cigarettes, uncomplicated; I10 Essential (primary) hypertension; M19.90 Unspecified osteoarthritis, unspecified site; M54.9 Dorsalgia, unspecified; G89.29 Other chronic pain; J44.9 Chronic obstructive pulmonary disease, unspecified; F12.90 Cannabis use, unspecified, uncomplicated; D12.8 Benign neoplasm of rectum; B96.20 Unspecified Escherichia coli [E. coli] as the cause of diseases classified elsewhere; K26.9 Duodenal ulcer, unspecified as acute or chronic, without hemorrhage or perforation; K29.70 Gastritis, unspecified, without bleeding; K44.9 Diaphragmatic hernia without obstruction or gangrene; K57.90 Diverticulosis of intestine, part unspecified, without perforation or abscess without bleeding; K64.8 Other hemorrhoids
CPT/HCPCS: 36415; 71250; 74176; 80053; 80306; 80320; 81000; 82607; 82728; 82746; 83540; 83550; 83735; 84443; 85007; 85014; 85018; 85027; 85045; 85055; 85610; 85730; 86850; 86900; 86901; 86920; 87077; 87088; 87186; 94640; 94760